=== PATIENT | male | born 2000 | race Caucasian/White ===

== ENCOUNTER 2021-10-20 04:35 | Emergency (ER) | payer BC ==
[~2021-10-20] VITALS: Ht 180.3 cm; Wt 93.9 kg
[2021-10-20] MEDS ORDERED: SODIUM CHLORIDE 0.9% 1000ML 1,000 ML IV STA (05:24)
[2021-10-20] MEDS ORDERED: ONDANSETRON HCL INJ 2MG/ML 2ML 2 MG/ML VIAL IV STA (05:25)
[2021-10-20] MEDS ORDERED: SODIUM CHLORIDE 0.9% 1000ML 1,000 ML ONE (06:09)
[2021-10-20] MEDS ORDERED: IOPAMIDOL 370 MG/ML 100 ML INFUS..BTL INJ ONE (07:43)
[2021-10-20] MEDS ORDERED: ONDANSETRON ODT4 MG PO (08:47)
[2021-10-20] MEDS ORDERED: FAMOTIDINE40 MG PO (08:48)
[2021-10-20] MEDS ORDERED: PANTOPRAZOLE SO40 MG PO (08:48)
== END 2021-10-20 08:45 | disposition home or self-care (01) ==
LOC: FSED 05:24
DX: R11.2 Nausea with vomiting, unspecified (principal); K29.70 Gastritis, unspecified, without bleeding; K21.9 Gastro-esophageal reflux disease without esophagitis; F41.9 Anxiety disorder, unspecified; F84.0 Autistic disorder
CPT/HCPCS: 74177; 80048; 80076; 81003; 85025; 99284; J7030; Q9967

== ENCOUNTER 2021-10-30 08:38 | Emergency (ER) | payer BC ==
[~2021-10-30] VITALS: Ht 180.3 cm; Wt 91.7 kg
[~2021-10-30 08:38] MED LIST: FAMOTIDINE40 MG PO; ONDANSETRON ODT4 MG PO; PANTOPRAZOLE SO40 MG PO
[2021-10-30] MEDS ORDERED: ONDANSETRON HCL INJ 2MG/ML 2ML 2 MG/ML VIAL ONE (09:06)
[2021-10-30] MEDS ORDERED: SODIUM CHLORIDE 0.9% 1000ML 1,000 ML ONE (09:06)
[2021-10-30] MEDS ORDERED: FAMOTIDINE 20 MG/2 ML VIAL IV STA (09:11)
[2021-10-30] MEDS ORDERED: INTUNIV3 MG PO (09:20)
[2021-10-30] MEDS ORDERED: SERTRALINE HCL100 MG PO (09:20)
[2021-10-30] MEDS ORDERED: TRAZODONE HCL50 MG PO (09:20)
[2021-10-30] MEDS ORDERED: CONCERTA27 MG (09:20)
[2021-10-30] MEDS ORDERED: ONDANSETRON HCL INJ 2MG/ML 2ML 2 MG/ML VIAL IV STA (09:21)
[2021-10-30] MEDS ORDERED: SODIUM CHLORIDE 0.9% 1000ML 1,000 ML IV ONE (09:30)
[2021-10-30] MEDS ORDERED: FAMOTIDINE 20 MG/2 ML VIAL IV ONE (09:35)
[2021-10-30] MEDS ORDERED: ONDANSETRON ODT4 MG PO ×2 (10:05→10:07)
[2021-10-30] MEDS ORDERED: PROMETHAZINE HCL (IM) 25 MG/ML VIAL IM ONE ×2 (10:15→10:21)
== END 2021-10-30 10:42 | disposition home or self-care (01) ==
LOC: FSED 09:18
DX: R11.2 Nausea with vomiting, unspecified (principal); K21.9 Gastro-esophageal reflux disease without esophagitis; R50.9 Fever, unspecified; F84.0 Autistic disorder; F41.9 Anxiety disorder, unspecified; F90.9 Attention-deficit hyperactivity disorder, unspecified type
CPT/HCPCS: 80048; 80076; 81003; 85025; 96372; 96374; 96375; 99284; J2405; J2550; J7030

== ENCOUNTER 2021-10-31 22:07 | Inpatient (IN) | payer BC ==
[~2021-10-31] VITALS: Ht 180.3 cm; Wt 91.6 kg
[~2021-10-31 22:07] MED LIST changes: +CONCERTA27 MG; +INTUNIV3 MG PO; +SERTRALINE HCL100 MG PO; +TRAZODONE HCL50 MG PO
[2021-10-31 22:37] LABS: BASOPHILS # (AUTO) 0.1 (0.0-0.1); BASOPHILS % 0.3 % (0.0-1.0); EOSINOPHILS # (AUTO) 0.2 (0.0-0.4); EOSINOPHILS % 1.1 % (0.0-6.0); HEMATOCRIT 45.6 % (38.2-49.6); HEMOGLOBIN 15.2 g/dL (14.0-18.0); LYMPHOCYTES % 13.9 % (18.0-39.1); MEAN CORPUSCULAR HEMOGLOBIN 27.1 pg (28-32); MEAN CORPUSCULAR HGB CONC 33.3 g/dL (31-35); MEAN CORPUSCULAR VOLUME 81.4 fL (81-99); MONOCYTES % 7.1 % (4.4-11.3); NEUTROPHILS # (AUTO) 11.2 (2.1-6.9); PLATELET COUNT 406 x10e3/uL (140-360); RED CELL DISTRIBUTION WIDTH 13.9 % (11.7-14.4)
[2021-10-31 22:54] LABS: ALBUMIN 4.5 g/dL (3.5-5.0); ALBUMIN/GLOBULIN RATIO 1.1 (0.8-2.0); ANION GAP 17.1 mmol/L (8-16); CALCIUM 10.1 mg/dL (8.4-10.2); CREATININE, SERUM 0.91 mg/dL (0.72-1.25); POTASSIUM 4.1 mmol/L (3.5-5.1)
[2021-10-31 23:14] LABS: CLARITY,URINE SL CLOUDY (CLEAR); COLOR,URINE AMBER (YELLOW); KETONES,URINE >=160 (NEGATIVE); LEUKOCYTE ESTERASE ,URINE NEGATIVE (NEGATIVE); NITRITE,URINE NEGATIVE (NEGATIVE); PROTEIN,URINE DIPSTICK NEGATIVE (NEGATIVE); URINE UROBILINOGEN 1 mg/dL (0.2 - 1)
[2021-10-31 23:17] LABS: BACTERIA,URINE FEW /HPF; EPITHELIAL CELLS,URINE RARE /LPF; MUCUS,URINE MODERATE (RARE); WBC,URINE (MAN) 0-5 /HPF (0-5)
[2021-11-01] VITALS (9 sets, daily range): BP systolic 121–139; BP diastolic 72–89
[2021-11-01] MEDS: SODIUM CHLORIDE 0.9% 1000ML 1,000 ML IV SCH ×3 (00:15→16:41)
[2021-11-01] MEDS ORDERED: PANTOPRAZOLE SO40 MG PO (01:37)
[2021-11-01] MEDS: ONDANSETRON HCL INJ 2MG/ML 2ML 2 MG/ML VIAL IV PRN ×3 (02:15→16:42)
[2021-11-01] MEDS: Morphine 2mg Syringe 2 MG/ML SYR IV PRN ×4 (02:30→21:09)
[2021-11-01 06:22] LABS: BASOPHILS % 0.2 % (0.0-1.0); EOSINOPHILS # (AUTO) 0.1 (0.0-0.4); EOSINOPHILS % 0.8 % (0.0-6.0); HEMATOCRIT 41.3 % (38.2-49.6); HEMOGLOBIN 13.6 g/dL (14.0-18.0); LYMPHOCYTES # (AUTO) 2.8 (1.0-3.2); LYMPHOCYTES % 21.1 % (18.0-39.1); MEAN CORPUSCULAR HEMOGLOBIN 26.9 pg (28-32); MEAN CORPUSCULAR HGB CONC 32.9 g/dL (31-35); MEAN CORPUSCULAR VOLUME 81.8 fL (81-99); MONOCYTES % 7.7 % (4.4-11.3); NEUTROPHILS # (AUTO) 9.4 (2.1-6.9); NEUTROPHILS % 69.8 % (38.7-80.0); PLATELET COUNT 343 x10e3/uL (140-360); RED BLOOD COUNT 5.05 x10e6/uL (4.3-5.7)
[2021-11-01 06:39] LABS: ALBUMIN/GLOBULIN RATIO 1.2 (0.8-2.0); ANION GAP 16.6 mmol/L (8-16); CALCIUM 9.2 mg/dL (8.4-10.2); CREATININE, SERUM 0.77 mg/dL (0.72-1.25); POTASSIUM 3.6 mmol/L (3.5-5.1)
[2021-11-01] MEDS ORDERED: LORAZEPAM INJ 2 MG/ML VIAL IV PRN (15:15)
[2021-11-01] MEDS: SERTRALINE HCL 100 MG TAB PO SCH (20:38)
[2021-11-01] MEDS: TRAZODONE HCL 50 MG TAB PO SCH (20:39)
[2021-11-02] VITALS (8 sets, daily range): BP systolic 127–142; BP diastolic 75–90
[2021-11-02] MEDS: SODIUM CHLORIDE 0.9% 1000ML 1,000 ML IV SCH ×4 (00:20→23:45)
[2021-11-02] MEDS: DIAZEPAM INJ 5 MG/ML 2 ML IV PRN ×2 (02:34→18:15)
[2021-11-02 05:46] LABS: BASOPHILS % 0.3 % (0.0-1.0); EOSINOPHILS # (AUTO) 0.2 (0.0-0.4); EOSINOPHILS % 1.3 % (0.0-6.0); HEMATOCRIT 39.6 % (38.2-49.6); HEMOGLOBIN 13.2 g/dL (14.0-18.0); LYMPHOCYTES # (AUTO) 2.6 (1.0-3.2); LYMPHOCYTES % 22.7 % (18.0-39.1); MEAN CORPUSCULAR HEMOGLOBIN 26.7 pg (28-32); MEAN CORPUSCULAR HGB CONC 33.3 g/dL (31-35); MEAN CORPUSCULAR VOLUME 80.2 fL (81-99); MONOCYTES % 8.3 % (4.4-11.3); NEUTROPHILS # (AUTO) 7.7 (2.1-6.9); NEUTROPHILS % 66.6 % (38.7-80.0); PLATELET COUNT 327 x10e3/uL (140-360); RED BLOOD COUNT 4.94 x10e6/uL (4.3-5.7); RED CELL DISTRIBUTION WIDTH 14.1 % (11.7-14.4)
[2021-11-02] MEDS: Morphine 2mg Syringe 2 MG/ML SYR IV PRN ×2 (06:11→18:07)
[2021-11-02] MEDS: ONDANSETRON HCL INJ 2MG/ML 2ML 2 MG/ML VIAL IV PRN ×2 (06:11→18:07)
[2021-11-02] MEDS ORDERED: FENTANYL CITRATE/PF 100MCG/2 ML INJ ONE (17:05)
[2021-11-02] MEDS ORDERED: MIDAZOLAM HCL 2 MG/2 ML VIAL ONE (17:05)
[2021-11-02] MEDS ORDERED: PROPOFOL IV EMULSION 10 MG/ML 20 ML VIAL ONE (17:10)
[2021-11-02] MEDS: SERTRALINE HCL 100 MG TAB PO SCH (20:17)
[2021-11-02] MEDS: TRAZODONE HCL 50 MG TAB PO SCH (20:18)
[2021-11-03] VITALS: BP 140/74
[2021-11-03] MEDS: Morphine 2mg Syringe 2 MG/ML SYR IV PRN (00:27)
[2021-11-03] MEDS: ONDANSETRON HCL INJ 2MG/ML 2ML 2 MG/ML VIAL IV PRN (00:31)
[2021-11-03 04:00] VITALS: BP 114/60
[2021-11-03] MEDS ORDERED: SENNA LAX8.6 MG PO (06:52)
[2021-11-03] MEDS: SODIUM CHLORIDE 0.9% 1000ML 1,000 ML IV SCH (07:45)
[2021-11-03] MEDS ORDERED: CODEINE PO (08:00)
[2021-11-03] MEDS ORDERED: TYLENOL PO (08:00)
[2021-11-03 08:26] VITALS: BP 124/65
[2021-11-03 08:51] VITALS: BP 124/65
== END 2021-11-03 09:21 | disposition home or self-care (01) | DRG 445 ==
LOC: ER 22:18 → ERHOLD 23:45 → MED/SURG3 11-01 00:41 → OBSVTOIN 11-02 15:13
PROVIDERS: ADMIT Internal Medicine; ATTEND Internal Medicine
PROC: 0DB78ZX Excision of Stomach, Pylorus, Via Natural or Artificial Opening Endoscopic, Diagnostic (ICD-10-PCS; 2021-11-02)
PROC: 0DB98ZX Excision of Duodenum, Via Natural or Artificial Opening Endoscopic, Diagnostic (ICD-10-PCS; principal; 2021-11-02 09:41)
DX: K82.8 Other specified diseases of gallbladder (principal); F84.0 Autistic disorder; K76.0 Fatty (change of) liver, not elsewhere classified; F90.9 Attention-deficit hyperactivity disorder, unspecified type; F32.A Depression, unspecified; F41.9 Anxiety disorder, unspecified; K29.70 Gastritis, unspecified, without bleeding; Z20.822 Contact with and (suspected) exposure to COVID-19
CPT/HCPCS: 36415; 43239; 74019; 76705; 78227; 80053; 81001; 83690; 85025; 88304; 88305; 88312; 88342; 99284; A9537; G0378; J2250; J2270; J2405; J3010; J3360; J7030